=== PATIENT | female | born 1980 | race Caucasian/White ===

== ENCOUNTER 2020-12-01 17:42 | Emergency (ER) | payer MEDICAID ==
[~2020-12-01] VITALS: Ht 149.9 cm; Wt 52.3 kg
[2020-12-01 17:48] VITALS: Ht 149.9 cm; Wt 52.3 kg
[2020-12-01] MEDS ORDERED: KLONOPIN0.5 MG PO (17:52)
[2020-12-01] MEDS ORDERED: ABILIFY2 MG PO (17:52)
[2020-12-01] MEDS ORDERED: CLONIDINE HCL0.1 MG PO (17:52)
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
[2020-12-01 18:40] LABS: BILIRUBIN NEGATIVE (NEGATIVE); KETONE NEGATIVE (NEGATIVE); NITRITE NEGATIVE (NEGATIVE); UROBILINOGEN NORMAL mg/dL (< 2)
[2020-12-01 18:44] LABS: HCG URINE NEGATIVE (NEGATIVE)
[2020-12-01 18:49] LABS: UDS - AMPHET POSITIVE QUAL (NEGATIVE); UDS - BARB POSITIVE QUAL (NEGATIVE); UDS - BENZO NEGATIVE QUAL (NEGATIVE); UDS - COCAINE NEGATIVE QUAL (NEGATIVE); UDS - OPIATE NEGATIVE QUAL (NEGATIVE); UDS - PCP NEGATIVE QUAL (NEGATIVE); UDS - THC POSITIVE QUAL (NEGATIVE)
[2020-12-01 19:06] LABS: BASOPHILS 0.3 % (0-2); EOSINOPHILS 2.2 % (0-7); HEMATOCRIT 38.3 % (36.0-48.0); IMMATURE GRANULOCYTES 0.1 % (0-5); LYMPHOCYTE ABS# 2.18 10x3/uL (1.18-3.74); LYMPHOCYTES 31.4 % (15-50); MCH 29.7 pg (26.0-34.0); MCHC 33.9 g/dL (31.0-37.0); MCV 87.4 fL (80.0-100.0); MEAN PLATELET VOLUME 8.7 fL (7.4-10.4); MONOCYTES 7.5 % (2-11); NEUTROPHIL ABS# 4.06 10x3/uL (1.56-6.13); NEUTROPHILS 58.5 % (40-80); PLATELET COUNT 246 10x3/uL (130-400); RBC 4.38 10x6/uL (4.00-5.40); RDW 13.4 % (11.5-14.5); WBC 6.9 10x3/uL (4.8-10.8)
[2020-12-01 19:17] LABS: CALCIUM 8.6 mg/dL (8.5-10.1); CARBON DIOXIDE 26.5 mmol/L (21.0-32.0); CREATININE - SERUM 0.9 mg/dL (0.6-1.3); POTASSIUM - SERUM 3.5 mmol/L (3.5-5.1)
[2020-12-01 19:25] LABS: ACETAMINOPHEN 4.2 ug/mL (10.0-30.0); ALBUMIN 3.5 g/dL (3.4-5.0); BILIRUBIN - TOTAL 0.39 mg/dL (0.2-1.3); MAGNESIUM - SERUM 1.8 mg/dL (1.8-2.4); PROTEIN - SERUM 6.3 g/dL (6.4-8.2)
[2020-12-01 19:59] LABS: SARS-CoV-2 ANTIGEN NEGATIVE- SARS-COV-2 (NEGATIVE)
[2020-12-02 06:28] VITALS: BP 110/69
== END 2020-12-02 06:28 ==
LOC: D.ER 17:42
PROVIDERS: Family Medicine
DX: R44.0 Auditory hallucinations (principal); R44.1 Visual hallucinations; R46.89 Other symptoms and signs involving appearance and behavior